=== PATIENT | female | born 1990 | race African-American/Black ===

== ENCOUNTER → 2022-10-23 | Outpatient (REF) | payer OTHER ==
[2022-10-23 21:43] LABS: APPEARANCE, URINE HAZY (CLEAR); BACTERIA, URINE AUTO NEGATIVE (NEGATIVE); BILIRUBIN, URINE AUTO NEGATIVE (NEGATIVE); BLOOD, URINE BLOOD NEGATIVE (NEGATIVE); COLOR, URINE YELLOW (YELLOW); GLUCOSE, URINE (UA) AUTO NEGATIVE (NEGATIVE); KETONE, URINE AUTO TRACE mg/dL (NEGATIVE); LEUKOCYTE ESTERASE, URINE AUTO NEGATIVE (NEGATIVE); MUCUS, URINE SMALL (NEGATIVE); NITRITE, URINE AUTO NEGATIVE (NEGATIVE); PROTEIN, URINE AUTO NEGATIVE (NEGATIVE); RBC, URINE AUTO 5 /HPF (0-3); SPECIFIC GRAVITY URINE AUTO 1.027 (1.002-1.035); SQUAMOUS EPITHELIAL CELL UR AU 4 /HPF (0-6); UROBILINOGEN, URINE AUTO 0.2 mg/dL (0.0-2.0); WBC, URINE AUTO 1 /HPF (0-3)
[2022-10-23 23:13] LABS: GC DNA AMPLIFICATION NEGATIVE (NEGATIVE)
== END ==
LOC: M LAB REF 21:23
PROVIDERS: ATTEND Physician Assistant
DX: N39.0 Urinary tract infection, site not specified (principal)

== ENCOUNTER → 2022-12-11 | Outpatient (CLI) | payer OTHER | LOC: M PLAIMG 14:25 | DX: M25.511 Pain in right shoulder (principal) ==

== ENCOUNTER 2022-12-16 13:34 | Emergency (ER) | payer OTHER ==
[~2022-12-16] VITALS: Ht 162.6 cm; Wt 71.9 kg
[2022-12-16] MEDS ORDERED: NAPR-885 PO (13:50)
[2022-12-16] MEDS ORDERED: VITMTA PO (13:50)
[2022-12-16] MEDS ORDERED: SERT50TA29 PO (13:50)
[2022-12-16] MEDS ORDERED: KETOROLAC 30 MG/ML 1ML VIAL IV ONE (15:25)
[2022-12-16 15:36] LABS: BASO % 0.2 % (0.0-1.0); EOS # 0.1 10^3/uL (0.0-0.5); EOS % 1.2 % (0.0-3.0); HEMATOCRIT 37.3 % (36.0-47.0); HEMOGLOBIN 11.6 g/dl (12.0-15.5); LYMPH # 2.2 10^3/uL (1.5-5.0); LYMPH % 42.8 % (24.0-44.0); MEAN CORPUSCULAR HEMOGLOBIN 22.9 pg (27.0-33.0); MEAN CORPUSCULAR HGB CONC 31.1 g/dl (32.0-36.5); MEAN CORPUSCULAR VOLUME 73.6 fl (80.0-96.0); MONO # 0.3 10^3/uL (0.0-0.8); MONO % 4.9 % (2.0-8.0); NEUTROPHILS # 2.6 10^3/uL (1.5-8.5); NEUTROPHILS % 50.7 % (36.0-66.0); PLATELET COUNT, AUTOMATED 195 10^3/uL (150-450); RED BLOOD COUNT 5.07 10^6/uL (4.00-5.40); WHITE BLOOD COUNT 5.1 10^3/uL (4.0-10.0)
[2022-12-16 16:11] LABS: CK-MB VALUE MASS < 1.0 NG/ML (<3.6)
[2022-12-16 16:12] LABS: BLOOD UREA NITROGEN 15 MG/DL (9-23); CARBON DIOXIDE LEVEL 28 MMOL/L (20-31); CHLORIDE LEVEL 107 MMOL/L (98-107); CREATININE FOR GFR 0.74 MG/DL (0.55-1.30); GLOMERULAR FILTRATION RATE > 60.0 (>60); GLUCOSE, FASTING 84 MG/DL (60-100); SODIUM LEVEL 140 MMOL/L (136-145)
[2022-12-16 16:14] LABS: FREE T4 1.04 NG/DL (0.89-1.76); THYROID STIMULATING HORMONE 0.615 uIU/ML (0.55-4.78)
[2022-12-16 16:17] LABS: HCG, SERUM QUALITATIVE NEGATIVE (NEGATIVE)
[2022-12-16 16:24] LABS: CPK CREATINE PHOSPHOKINASE 87 U/L (34-145); MB/CK RELATIVE INDEX 1.14 (< OR =4)
[2022-12-16] MEDS ORDERED: NS 1,000 ML IV ONE (16:30)
[2022-12-16 17:38] VITALS: BP 116/78
== END 2022-12-16 18:22 | disposition home or self-care (01) ==
LOC: M ED 13:34
DX: R07.89 Other chest pain (principal); F41.9 Anxiety disorder, unspecified; F32.A Depression, unspecified; F10.10 Alcohol abuse, uncomplicated; Z79.810 Long term (current) use of selective estrogen receptor modulators (SERMs); Z79.1 Long term (current) use of non-steroidal anti-inflammatories (NSAID); Z79.899 Other long term (current) drug therapy
CPT/HCPCS: 71046; 80048; 82550; 82553; 84439; 84443; 84484; 84703; 85025; 85379; 93005; 96361; 96374; 99284; J1885

== ENCOUNTER 2023-02-25 06:02 | Day surgery (SDC) | payer OTHER ==
[~2023-02-25] VITALS: Ht 165.1 cm; Wt 74.7 kg
[~2023-02-25 06:02] MED LIST: HYDR-643 PO; NAPR-885 PO; SERT50TA29 PO; VITA100093 PO; VITMTA PO
[2023-02-25] MEDS ORDERED: LR 1,000 ML IV SCH ×2 (06:10→08:50)
[2023-02-25] MEDS ORDERED: propofoL 200 MG/20 ML VIAL As Ordered ONE (06:50)
[2023-02-25] MEDS ORDERED: LIDOCAINE 2% 100MG/5ML SDV (FOR ANES.) As Ordered ONE (06:50)
[2023-02-25] MEDS ORDERED: KETOROLAC 60MG 2ML VIAL As Ordered ONE (06:50)
[2023-02-25] MEDS ORDERED: ONDANSETRON 4MG 2ML VIAL As Ordered ONE (06:50)
[2023-02-25] MEDS ORDERED: MIDAZOLAM INJ 2MG/2ML VIAL As Ordered ONE (06:56)
[2023-02-25] MEDS ORDERED: fentaNYL 100 MCG/2 ML INJECTION As Ordered ONE (06:56)
[2023-02-25] MEDS ORDERED: LEVONORGESTREL 52MG (MIRENA) IUD As Ordered ONE (07:30)
[2023-02-25] MEDS ORDERED: ACETAMINOPHEN 1000MG 100ML IV BAG As Ordered ONE (07:51)
[2023-02-25] MEDS ORDERED: oxyCODONE 5MG TAB PO PRN (08:50)
[2023-02-25] MEDS ORDERED: ONDANSETRON 4MG 2ML VIAL IV PRN (08:50)
[2023-02-25] MEDS ORDERED: fentaNYL 100 MCG/2 ML INJECTION IV PRN (08:50)
[2023-02-25] MEDS ORDERED: HYDROMORPHONE HCL 0.5 MG/ 0.5 ML SYRINGE IV PRN (08:50)
[2023-02-25] MEDS ORDERED: oxyCODONE 5MG TAB PO ONE (09:00)
[2023-02-25 10:00] VITALS: BP 128/70; TEMP 97.2; O2SAT 99
== END 2023-02-25 10:01 | disposition home or self-care (01) ==
LOC: M SDC 06:02
PROVIDERS: ATTEND Obstetrics & Gynecology
DX: N84.0 Polyp of corpus uteri (principal); F41.9 Anxiety disorder, unspecified; F32.A Depression, unspecified; G43.909 Migraine, unspecified, not intractable, without status migrainosus; K21.9 Gastro-esophageal reflux disease without esophagitis; Z79.899 Other long term (current) drug therapy
CPT/HCPCS: 58300; 58558; 81025; 88305; J0131; J1100; J1885; J2250; J2405; J3010; J7298

== ENCOUNTER → 2023-03-31 | Outpatient (CLI) | payer OTHER ==
[~2023-03-31] MED LIST changes: +ISOVUE-370 76% 100ML VIAL As Ordered ONE
== END ==
LOC: M RAD 17:20
DX: R10.32 Left lower quadrant pain (principal)

== ENCOUNTER → 2023-05-29 | Outpatient (CLI) | payer OTHER ==
[~2023-05-29] MED LIST changes: -ISOVUE-370 76% 100ML VIAL As Ordered ONE
== END ==
LOC: M RAD 08:06
PROVIDERS: ATTEND Physician Assistant
DX: M79.644 Pain in right finger(s) (principal); M79.645 Pain in left finger(s)

== ENCOUNTER → 2023-06-23 | Outpatient (REF) | LOC: M PLAIMG 08:43 | PROVIDERS: ATTEND Internal Medicine | DX: R06.02 Shortness of breath (principal) ==

== ENCOUNTER → 2023-08-02 | Outpatient (CLI) | payer OTHER | LOC: M WHC 12:36 | PROVIDERS: ATTEND Physician Assistant | DX: N63.20 Unspecified lump in the left breast, unspecified quadrant (principal); Z80.3 Family history of malignant neoplasm of breast | CPT/HCPCS: 76642; 77066; G0279 ==

== ENCOUNTER → 2023-08-13 | Outpatient (REF) | payer OTHER | LOC: M SFHCRHEU 16:28 | PROVIDERS: ATTEND Internal Medicine | DX: R76.8 Other specified abnormal immunological findings in serum (principal); M06.4 Inflammatory polyarthropathy; Z53.9 Procedure and treatment not carried out, unspecified reason ==

== ENCOUNTER → 2023-08-16 | Outpatient (CLI) | payer OTHER ==
[2023-08-16 18:01] LABS: EOS % 0.7 % (0.0-3.0); HEMATOCRIT 40.3 % (36.0-47.0); HEMOGLOBIN 12.5 g/dl (12.0-15.5); LYMPH # 2.1 10^3/uL (1.5-5.0); LYMPH % 35.7 % (24.0-44.0); MEAN CORPUSCULAR HEMOGLOBIN 22.9 pg (27.0-33.0); MEAN CORPUSCULAR VOLUME 73.7 fl (80.0-96.0); MONO # 0.3 10^3/uL (0.0-0.8); MONO % 5.6 % (2.0-8.0); NEUTROPHILS # 3.4 10^3/uL (1.5-8.5); NEUTROPHILS % 57.7 % (36.0-66.0); PLATELET COUNT, AUTOMATED 210 10^3/uL (150-450); RED BLOOD COUNT 5.47 10^6/uL (4.00-5.40); WHITE BLOOD COUNT 5.9 10^3/uL (4.0-10.0)
[2023-08-16 18:26] LABS: TOTAL PROTEIN,RANDOM URINE 7.3 MG/DL (0.0-14.0)
[2023-08-16 18:27] LABS: APPEARANCE, URINE CLEAR (CLEAR); BACTERIA, URINE AUTO 1+ (NEGATIVE); BILIRUBIN, URINE AUTO NEGATIVE (NEGATIVE); BLOOD, URINE BLOOD NEGATIVE (NEGATIVE); COLOR, URINE STRAW (YELLOW); GLUCOSE, URINE (UA) AUTO NEGATIVE (NEGATIVE); KETONE, URINE AUTO NEGATIVE (NEGATIVE); LEUKOCYTE ESTERASE, URINE AUTO NEGATIVE (NEGATIVE); MUCUS, URINE SMALL (NEGATIVE); NITRITE, URINE AUTO NEGATIVE (NEGATIVE); PROTEIN, URINE AUTO NEGATIVE (NEGATIVE); RBC, URINE AUTO 0 /HPF (0-3); SPECIFIC GRAVITY URINE AUTO 1.009 (1.002-1.035); SQUAMOUS EPITHELIAL CELL UR AU 1 /HPF (0-6); UROBILINOGEN, URINE AUTO 0.2 mg/dL (0.0-2.0); WBC, URINE AUTO 1 /HPF (0-3)
[2023-08-16 18:28] LABS: ERYTHROCYTE SEDIMENTATION RATE 54 mm/hr (0-20)
[2023-08-16 18:31] LABS: CREATININE,RANDOM URINE 66.2 MG/DL
[2023-08-16 18:35] LABS: ALBUMIN 3.8 G/DL (3.2-5.2); ALKALINE PHOSPHATASE 82 U/L (46-116); ALT/SGPT 27 U/L (7.0-40); AST/SGOT 23 U/L (<34); BILIRUBIN,DIRECT 0.1 MG/DL (<0.4); BILIRUBIN,TOTAL 0.5 MG/DL (0.3-1.2); BLOOD UREA NITROGEN 7 MG/DL (9-23); CALCIUM LEVEL 9.3 MG/DL (8.5-10.1); CARBON DIOXIDE LEVEL 30 MMOL/L (20-31); CHLORIDE LEVEL 105 MMOL/L (98-107); CREATININE FOR GFR 0.57 MG/DL (0.55-1.30); GLOMERULAR FILTRATION RATE > 60.0 (>60); GLUCOSE, FASTING 83 MG/DL (60-100); POTASSIUM SERUM 4.3 MMOL/L (3.5-5.1); SODIUM LEVEL 139 MMOL/L (136-145)
[2023-08-16 18:36] LABS: COMPLEMENT C3 150.3 MG/DL (84.0-160.0); COMPLEMENT C4 40.6 MG/DL (12-36); HEPATITIS B SURFACE ANTIBODY POSITIVE (POSITIVE)
[2023-08-16 19:08] LABS: HEPATITIS C VIRUS ABY INDEX 0.03 INDEX (<0.8)
== END ==
LOC: M LAB 16:44
PROVIDERS: ATTEND Internal Medicine
DX: R76.8 Other specified abnormal immunological findings in serum (principal); M06.4 Inflammatory polyarthropathy

== ENCOUNTER → 2023-09-27 | Outpatient (REF) | payer OTHER | LOC: M LAB REF 16:23 | PROVIDERS: ATTEND Nurse Practitioner Family | DX: R30.0 Dysuria (principal); B96.20 Unspecified Escherichia coli [E. coli] as the cause of diseases classified elsewhere ==